=== PATIENT | female | born 1930 | race African-American/Black ===

== ENCOUNTER → 2017-08-07 | Outpatient (CLI) | payer MEDICARE, BC ==
[~2017-08-07] MED LIST: BARIUM SULFATE 176 GM SUSP.RECON ONE; EZ-HD SUSPENSION(BARIUM SULFATE 340GM) PO ONE
== END | disposition home or self-care (01) ==
LOC: RAD 09:45
PROVIDERS: ATTEND Specialist
DX: R47.02 Dysphasia (principal); R13.19 Other dysphagia
CPT/HCPCS: 74220